=== PATIENT | female | born 1990 ===

== ENCOUNTER 2018-05-18 17:01 | Emergency (ER) | payer OTHER ==
[~2018-05-18] VITALS: Ht 167.6 cm; Wt 64.4 kg
[~2018-05-18 17:01] MED LIST: CITRANATAL HAR1 EACH PO
--- NOTE | 2018-05-18 18:59 | ED GI/GU/ABDOMINAL COMPLAINT ---
History of Present Illness General Chief Complaint: General Adult Stated Complaint: KIDNEY STONE ? Source: patient Exam Limitations: no limitations Vital Signs & Intake/Output Vital Signs & Intake/Output Vital Signs Date Time Temp Pulse Resp B/P B/P Pulse O2 O2 Flow FiO2 Mean Ox Delivery Rate 05/18 2111 97.7 77 18 110/63 99 Room Air Room Air 05/18 1707 99.1 111 18 110/74 98 Room Air ED Intake and Output 05/19 0000 05/18 1200 Intake Total Output Total Balance Patient 142 lb Weight Allergies Coded Allergies: No Known Allergies (09/10/17) Triage Note: WENT TO URGENT CARE TODAY FOR RIGHT FLANK PAIN, HAD U/S DONE THERE WHICH FOUND 7MM STONE WITH MILD HYDRONEPHROSIS. ALSO HAS NON OBSTRUCTING STONES TO LEFT. DENIES GROSS HEMATURIA. PAIN BEGAN LAST NIGHT AND HAS WORSENED SINCE THEN. RECEIVED TORADOL THIS MORNING AT URGENT CARE WITHOUT RELIEF. -N/-V/+D. +HEADACHE Triage Nurses Notes Reviewed? yes ? N Is pt currently ? No Onset: Abrupt Duration: getting worse Quality/Severity: sharpness, severe, stabbing Severity Numbers: 10 HPI: Patient is a 27-year-old female with a past medical history of kidney stones who presents emergency room with concerns a 24-hour history of right-sided severe flank pain or patient was initially evaluated at urgent care facility received IM Toradol with no improvement of pain patient does present with ultrasound results and which dictation identifies the patient has mild hydronephrosis to the level of the mid ureter with A 7 mm calculus. Patient has nausea Denies any vaginal bleeding discharge hematuria dysuria (Carlos Gorman) Reconcile Medications Hydromorphone HCl (Dilaudid) 2 MG TABLET 1 TAB PO BIDP PRN PAIN Ondansetron HCl (Zofran) 4 MG TABLET 1 TAB PO Q6-8P PRN NAUSEA Pnv59/Iron,Carb&Fum/FA/Dss/Dha (Citranatal [place] Capsule) 27 MG IRON-1 MG-50 MG-260 MG CAPSULE 1 CAP PO DAILY (Reported) (Shan Rodrigez DO) Past History Travel History Traveled to [place] past 21 day No Medical History Any Pertinent Medical History? see below for history Neurological: NONE EENT: NONE Cardiovascular: NONE Respiratory: NONE Gastrointestinal: NONE Hepatic: NONE Renal: KIDNEY STONES Musculoskeletal: NONE Psychiatric: NONE Endocrine: NONE Blood Disorders: NONE Cancer(s): NONE Surgical History Surgical History: appendectomy Psychosocial History What is your primary language Polish Tobacco Use: Current Daily Use Daily Tobacco Use Amount/Type: => 5 Cigarettes daily ETOH Use: denies use Illicit Drug Use: denies illicit drug use Family History Hx Contributory? No (Carlos Gorman) Review of Systems Review of Systems Constitutional: Reports: no symptoms. EENTM: Reports: no symptoms. Respiratory: Reports: no symptoms. Cardiovascular: Reports: no symptoms. GI: Reports: see HPI, abdominal pain. Genitourinary: Denies: discharge, dysuria, frequency. Musculoskeletal: Reports: no symptoms. Skin: Reports: no symptoms. Neurological/Psychological: Reports: no symptoms. Hematologic/Endocrine: Reports: no symptoms. Immunologic/Allergic: Reports: no symptoms. All Other Systems: Reviewed and Negative (Carlos Gorman) Physical Exam Physical Exam General Appearance: moderate distress Head: atraumatic Ears, Nose, Throat, Mouth: hearing grossly normal Respiratory: quiet respiration Cardiovascular: regular rate/rhythm Gastrointestinal: normal bowel sounds, soft, RIGHT FLANK PAIN NO REBOUND Back: NO CVA TENDERNESS Skin: intact, normal color Core Measures ACS in differential dx? No Sepsis Present: No Sepsis Focused Exam Completed? No (Carlos Gorman) Progress Differential Diagnosis: AAA, AMI, appendicitis, biliary colic, bowel obstruction , colon cancer, cholecystitis, diverticulitis, ectopic , endometritis, esophageal varices, gastritis, hepatitis, hernia, hemorrhoids, ischemic bowel, inflamm bowel dis, intrauterine , kidney stone, Magali-Atul tear, ovarian cyst, ovarian torsion, pancreatitis, PID/cervicitis, peptic ulcer, PUD/ GERD, perforated viscous, SBO, threatened AB, UTI/pyelo Plan of Care: Orders Procedure Date/time Status COMPREHENSIVE METABOLIC PANEL 05/18 1905 Complete CBC WITHOUT DIFFERENTIAL 05/18 1901 Complete Add-on Test (ER Only) 05/18 185 Active URINE 05/18 171 Complete URINALYSIS 05/18 1702 Complete Laboratory Tests 05/18/18 191: Anion Gap 12, Estimated GFR > 60, BUN/Creatinine Ratio 17.1, Glucose 89, Calcium 9.9, Total Bilirubin 0.3, AST 20, ALT 30, Alkaline Phosphatase 90, Total Protein 8.1, Albumin 4.9, Globulin 3.2, Albumin/Globulin Ratio 1.5, CBC w Diff NO MAN DIFF REQ, RBC 4.99, MCV 87.6, MCH 28.9, MCHC 33.0, RDW 13.8, MPV 9.3, Gran % 69.1, Lymphocytes % 22.5, Monocytes % 6.2, Eosinophils % 1.9, Basophils % 0.3, Absolute Granulocytes 5.7, Absolute Lymphocytes 1.9, Absolute Monocytes 0.5, Absolute Eosinophils 0.2, Absolute Basophils 0 05/18/181717: Urinalysis LIGHT H, Urine Color YEL, Urine Clarity HAZY H, Urine pH 6.5, Ur Specific [place] 1.015, Urine Protein TRACE H, Urine Ketones TRACE H, Urine Nitrite NEG, Urine Bilirubin NEG, Urine Urobilinogen 1.0, Ur Leukocyte Esterase SMALL H, Ur Microscopic SEDIMENT EXAMINED, Urine RBC 10-15 H, Urine WBC 3-5 H , Ur Epithelial Cells MOD H, Urine Bacteria FEW H, Urine Mucus MOD H, Urine Hemoglobin MOD H, Urine Glucose NEG, Urine Test NEGATIVE Patient upon initial presentation was noted to be in moderate distress on relief with morphine daughter was a misread patient had significant improvement of her pain discussed patient with Dr. Coker who advised patient to the reevaluated after Dilaudid WAS GIVEN IF THE PAIN IS manageable to follow up in office for stenting. 2142 patient was reevaluated and had stabilization of her pain patient requested to be discharged upon discharge patient looks well no apparent distress and will comply with discharge instructions and had no questions Diagnostic Imaging: Viewed by Me: Ultrasound. Initial ED EKG: none (Trip CARUSO,Carlos) Departure Departure Disposition: HOME OR SELF CARE Condition: Stable Clinical Impression Primary Impression: Kidney stone on right side Referrals: John Paul CAVAZOS,Chava Turner Patient Has No Primary Care Dr (PCP/Family) Additional Instructions: As discussed tomorrow please follow up with urologist Dr. COKER for further evaluation treatment begin the prescription of Zofran for nausea and Dilaudid for pain, persistent waiting at [facility]. If symptoms worsen or if YOU develop any new concerning symptom return to emergency room. Departure Forms: Customer Survey General Discharge Information Prescriptions: Current Visit Scripts Hydromorphone HCl (Dilaudid) 1 TAB PO BIDP PRN PAIN #8 TAB Ondansetron HCl (Zofran) 1 TAB PO Q6-8P PRN NAUSEA #8 TAB (Carlos Gorman) PA/CLINICAL TRIAL HEAD Co-Sign Statement Statement: ED Attending supervision documentation- [] I saw and evaluated the patient. I have also reviewed all the pertinent lab results and diagnostic results. I agree with the findings and the plan of care as documented in the PA's/CLINICAL TRIAL HEAD's documentation. [X] I have reviewed the ED Record and agree with the PA's/CLINICAL TRIAL HEAD's documentation. [] Additions or exceptions (if any) to the PAs/CLINICAL TRIAL HEAD's note and plan are summarized below: [] (Shan Rodrigez DO)
[2018-05-18 19:33] LABS: ABSOLUTE BASOPHIL COUNT 0 /CUMM (0.0-0.2); ABSOLUTE EOSINOPHIL COUNT 0.2 /CUMM (0.0-0.7); ABSOLUTE GRANULOCYTE CT 5.7 /CUMM (1.4-6.5); ABSOLUTE LYMPH COUNT 1.9 /CUMM (1.2-3.4); ABSOLUTE MONOCYTE COUNT 0.5 /CUMM (0.10-0.60); BASOPHIL % 0.3 % (0.0-2.0); EOSINOPHIL % 1.9 % (0-5); GRANULOCYTE % 69.1 % (42.2-75.2); HEMATOCRIT 43.7 % (37-47); MEAN CORPUSCULAR HGB 28.9 PG (27.0-31.0); MEAN CORPUSCULAR VOLUME 87.6 FL (81.0-99.0); MEAN PLATELET VOLUME 9.3 FL (7.4-10.4); PLATELET COUNT 213 /CUMM (130-400); RBC DISTRIBUTION WIDTH 13.8 % (11.5-14.5); RED BLOOD CELL CT 4.99 /CUMM (4.20-5.40); WHITE BLOOD CELL COUNT 8.2 /CUMM (4.8-10.8)
[2018-05-18 21:11] VITALS: BP 110/63
[2018-05-18] MEDS ORDERED: DILAUDID2 M1 PO (21:45)
[2018-05-18] MEDS ORDERED: ZOFRAN4 M2 PO (21:45)
== END 2018-05-18 21:54 ==
LOC: ERH 17:01
PROVIDERS: Physician Assistant
DX: N20.0 Calculus of kidney (principal)
CPT/HCPCS: 81001; 81025; 96361; 96374; 96375; J2405

== ENCOUNTER → 2018-05-20 | Day surgery (SDC) | payer OTHER ==
[~2018-05-20] VITALS: Ht 167.6 cm; Wt 63.5 kg
[~2018-05-20] MED LIST changes: +DILAUDID2 M1 PO; +ZOFRAN4 M2 PO
--- NOTE | 2018-05-20 11:38 | Operative Report ---
Operative/Inv Procedure Report Surgery Date: 05/20/18 Name of Procedure: Cystoscopy, right ureteroscopy, laser lithotripsy of right ureteral stone, basket extraction of stone fragments, right retrograde pyelogram, insertion of right double-J ureteral stent Pre-Operative Diagnosis: 7 mm right ureteral calculus Post-Operative Diagnosis: Same Estimated Blood Loss: scant Surgeon/Artificial Flower Maker: John Paul CAVAZOS,Chava Turner Anesthesia: laryngeal mask airway Drains: 24 cm 6 [place] right double-J ureteral stent with long suture Specimens: Urine culture and right ureteral stone fragment Complications: None Condition: Stable Operative Indication: This patient has a history of a urinary stone in the past while . At that time a stent was placed and she subsequently passed the stone. Recently she's been having right flank pain. She went to her primary care physician 2 days ago and an ultrasound revealed a 7 mm stone in the right mid ureter with right hydronephrosis. Once the emergency room. Her pain was controlled with narcotic pain medication and she was discharged home and seen in the office and scheduled for right ureteroscopy and laser lithotripsy. Operative/Procedure Note Note: The patient was taken to the operating room and identified. She was placed in supine position on the cystoscopy table. Timeout was executed appropriately with the patient awake. Gen. anesthesia was induced via LMA. She was then placed in the dorsal lithotomy position and prepped and draped in usual fashion for cystoscopy. Surgical pause was executed appropriately. Fluoroscopy images taken with a marker on the right side of the abdomen to confirm the correct side of surgery as well as a correct orientation of the fluoroscopy image. The 22 [place] cystoscope sheath was placed into the bladder. Urine was collected for culture. Cystoscopy was performed. The bladder was normal. Ureteral orifices were normal in location and appearance. A guidewire was placed through the cystoscope into the right ureter and advanced up the level of the right kidney without difficulty. The cystoscope was removed leaving the wire in place. Short rigid ureteroscope was then advanced through the urethra, bladder and into the right ureter. It was advanced proximally in the right ureter and at the level of L4 a 7 mm stone was seen. The 365 holmium laser fiber was placed through the ureteroscope and the stone fragmented into multiple small fragments. Using a stone basket one of the fragments was removed and sent for pathology. The remaining stone fragments were mostly dragged down into the bladder. At this point the ureter was inspected again with the ureteroscope and no significant stone fragments were remaining. The ureteroscope was removed leaving the safety guidewire in place. The cystoscope was back loaded onto the guidewire. An open-ended catheter was placed over the wire and the wire removed. Some contrast was then injected to outline the right renal collecting system which appeared normal other than being mildly dilated. Guidewire was placed back through the open-ended catheter which was removed. Under visual fluoroscopic control a 24 7 m 6 [place] right double-J stent was placed. Fluoroscopy confirmed the proximal and the stent coiled in the right kidney and the distal end coiled in the bladder. A long suture was left attached the distal end of the stent exiting the urethra. Patient tolerated the procedure well and as completion was taken to recovery room in stable condition. Findings: 7 mm stone in R ureter at level of L4 Discharge Disposition: PACU
--- NOTE | 2018-05-21 14:23 | RADIOLOGY REPORT ---
EXAMINATION: FLUOROSCOPY ASSISTANCE AT THE TIME OF RIGHT-SIDED URETEROSCOPY AND STENT PLACEMENT CLINICAL INFORMATION: Right-sided ureteroscopy and stent placement. COMPARISON: None. TECHNIQUE AND FINDINGS: Fluoroscopic assistance is provided at the time of right-sided ureteroscopy and stent placement. Full procedural detail will be dictated by Dr. Coker. Total fluoroscopy time used was 32 seconds. 5 spot radiographs were obtained at the time of the procedure. IMPRESSION: Fluoroscopy assistance is provided at the time of right-sided ureteroscopy and stent placement. Full procedural detail will be dictated by Dr. Coker.
== END ==
LOC: SDA 01:34 → UNDOADMIN 01:34 → EDSTATUS 07:00 → STS 08:34
DX: N20.1 Calculus of ureter (principal); Z87.442 Personal history of urinary calculi; F17.200 Nicotine dependence, unspecified, uncomplicated
CPT/HCPCS: 76000; 81025; 87086; C2617; J0690; J1885; J2250; J2405